=== PATIENT | female | born 1965 | race Caucasian/White ===

== ENCOUNTER → 2018-01-29 | Outpatient (CLI) | payer SELFPAY ==
--- NOTE | 2018-01-31 08:22 | MM ---
Reason for exam: screening (asymptomatic). Last mammogram was performed 2 years and 3 months ago. History: Patient is postmenopausal and history of other cancer. Excisional biopsy of the left breast, 2006. Physical Findings: A clinical breast exam by your physician is recommended on an annual basis and results should be correlated with mammographic findings. MG 3D Screening Mammo W/Cad Bilateral CC and MLO view(s) were taken. Prior study comparison: October 18, 2015, bilateral MG 3d screening mammo w/cad. September 21, 2014, bilateral MG screening mammo w CAD. The breast tissue is extremely dense which could obscure a lesion on mammography. Surgical clips in the left upper quadrant. No significant changes when compared with prior studies. ASSESSMENT: Benign, BI-RAD 2 RECOMMENDATION: Routine screening mammogram of both breasts in 1 year.
== END | disposition home or self-care (01) ==
LOC: RADMAMWWP 16:34
PROVIDERS: ATTEND Family Medicine
DX: Z12.31 Encounter for screening mammogram for malignant neoplasm of breast (principal)
CPT/HCPCS: 77063; 77067

== ENCOUNTER → 2018-02-12 | Outpatient (CLI) | payer OTHER ==
--- NOTE | 2018-02-12 23:40 | MR ---
EXAMINATION TYPE: MR elleine/lspine wo con DATE OF EXAM: 02/12/2018 COMPARISON: NONE HISTORY: Neck pain and back pain TECHNIQUE: Multiplanar, multisequence imaging of the lumbar spine is performed without IV contrast. M ultiplanar multiecho imaging of the cervical spine was performed with no contrast. FINDINGS: Cervical. There is mild straightening of the cervical spine. There is spurring of the endplates from C5 to C7. There are anterior and posterior cervical disc herniations at C5-6 C6-7. Cervical spinal cord has nor mal signal pattern. There is no edema. There is also posterior disc bulging at C3-4 and C4-5. The can al is narrowed to 7 mm at C5-6 which is the narrowest point. There is also 7 mm spinal stenosis at C6 -7. There is no compression fracture. There is no cervical paraspinal mass. The posterior elements ar e intact. I see no focal bone destruction in the cervical spine. There is sclerotic change in the see C6 and C7 vertebra. The lumbar vertebra have normal alignment. There is severe narrowing of the L5-S1 disc space. There i s mild anterior posterior lumbar disc herniation at L5-S1. There is horizontal decreased signal through the mid portions of the L5 and the S1 vertebra consisten t with transverse nondisplaced fractures. There is no lumbar paraspinal mass. I see no lumbar spinal stenosis. There is narrowing of the neural foramina bilaterally at L5-S1 due to the facet arthropathy and posterior concentric disc herniation. CONCLUSION: Multilevel cervical spondylotic changes. 7 mm spinal stenosis at C5-6 and C6-7. Anterior and posterio r multilevel cervical disc herniation as above. Normal cervical spinal cord. No cervical spine fractu re. Moderate spondylosis at L5-S1 with small posterior lumbar disc herniation. There is neural foraminal stenosis bilaterally at L5-S1 due to disc space narrowing facet arthropathy and posterior mild disc h erniation. Transverse abnormal signal in the mid portions of the L5 and S1 vertebral bodies consistent with suba cute transverse nondisplaced fractures. There are small posterior disc bulges at L1-2 and T11-12 without any significant impingement on the n eural elements. L1-2 disc herniation is more to the right side.
== END | disposition home or self-care (01) ==
LOC: RADMRIMAIN 20:18
PROVIDERS: ATTEND Family Medicine
DX: M99.73 Connective tissue and disc stenosis of intervertebral foramina of lumbar region (principal); M51.25 Other intervertebral disc displacement, thoracolumbar region; M51.36 Other intervertebral disc degeneration, lumbar region; M47.817 Spondylosis without myelopathy or radiculopathy, lumbosacral region; M46.96 Unspecified inflammatory spondylopathy, lumbar region; M48.02 Spinal stenosis, cervical region; M50.222 Other cervical disc displacement at C5-C6 level; M47.812 Spondylosis without myelopathy or radiculopathy, cervical region; R20.2 Paresthesia of skin
CPT/HCPCS: 72141; 72148

== ENCOUNTER → 2019-01-31 | Outpatient (CLI) | payer OTHER ==
--- NOTE | 2019-02-03 09:16 | MM ---
Reason for exam: screening (asymptomatic). Last mammogram was performed 1 year ago. History: Patient is postmenopausal and has history of other cancer at age 24. Excisional biopsy of the left breast, 2006. Physical Findings: A clinical breast exam by your physician is recommended on an annual basis and results should be correlated with mammographic findings. MG 3D Screening Mammo W/Cad Bilateral CC and MLO view(s) were taken. Prior study comparison: January 29, 2018, bilateral MG 3d screening mammo w/cad. October 18, 2015, bilateral MG 3d screening mammo w/cad. The breast tissue is heterogeneously dense. This may lower the sensitivity of mammography. Finding #1: There are clips in the upper outer quadrant, posterior position of the left breast. Finding #2: There are typically benign dystrophic, round calcifications in the left breast. There is no discrete abnormality. ASSESSMENT: Benign, BI-RAD 2 RECOMMENDATION: Routine screening mammogram of both breasts in 1 year.
== END | disposition home or self-care (01) ==
LOC: RADMAMWWP 09:14
PROVIDERS: ATTEND Family Medicine
DX: Z12.31 Encounter for screening mammogram for malignant neoplasm of breast (principal)
CPT/HCPCS: 77063; 77067